=== PATIENT | female | born 1985 | race Caucasian/White ===

== ENCOUNTER 2019-04-11 14:37 | Outpatient (REF) | payer BC, SELFPAY | END 2019-04-11 14:57 | LOC: LBN 14:37 | PROVIDERS: PCP Family Medicine; Visit Provider Nurse Practitioner | DX: N39.0 Urinary tract infection, site not specified (principal) | CPT/HCPCS: 87077; 87086; 87186 ==

== ENCOUNTER 2020-12-02 03:46 | Outpatient (CLI) | payer OTHER, SELFPAY ==
[2020-12-02 16:01] LABS: Kit/Specimen SENT
[2020-12-02 16:07] LABS: Abs Immature Grans 0.05 10^3/uL (0.0-0.06); Absolute Basophil Count 0.04 10^3/uL (0.0-0.2); Absolute Eosinophil Count 0.04 10^3/uL (0.0-0.7); Absolute Lymphocyte Count 1.29 10^3/uL (1.2-3.4); Absolute Monocyte Count 0.64 10^3/uL (0.1-0.8); Absolute Neutrophil Count 8.16 10^3/uL (1.2-6.7); Basophils % 0.4; Eosinophils % 0.4; HCT 38.2 % (36.0-46.0); HGB 13.4 g/dL (11.2-15.7); Immature Grans % 0.5; Lymphocytes % 12.6; MCH 30.1 pg (27.0-33.0); MCHC 35.1 % (32.0-36.0); MCV 85.8 fL (80-95); MPV 9.7 fL (8.0-11.0); Monocytes % 6.3; Neutrophils % 79.8; Nucleated RBC 0 %; Platelet Count 303 10^3/uL (130-400); RBC 4.45 10^6/uL (3.93-5.22); RDW 12.1 % (11.7-14.6); RDW-SD 37.9 fL; WBC 10.22 10^3/uL (4.4-10.8)
[2020-12-02 16:57] LABS: ALT 36 U/L (14-59); AST 18 U/L (15-37); Albumin 4.1 g/dL (3.4-5.0); Alkaline Phosphatase 37 U/L (46-116); Anion Gap 12.8 mmol/L (3-11); BUN 6 mg/dL (7-18); Bilirubin, Total 0.4 mg/dL (0.2-1.0); CO2 24.2 mmol/L (21.0-32.0); CREATININE 0.5 mg/dL (0.55-1.02); Calcium 9.3 mg/dL (8.5-10.1); Chloride 100 mmol/L (98-107); Glucose 77 mg/dL (74-106); Potassium 3.7 mmol/L (3.5-5.1); Sodium 137 mmol/L (136-145); TSH (W/Ref FT4) 1.35 uIU/mL (0.36-3.74); Total Protein 7.8 g/dL (6.4-8.2)
[2020-12-02 19:42] LABS: *AMPHETAMINES SCREEN URINE Negative (Negative); *BARBITURATES SCREEN URINE Negative (Negative); *BENZODIAZEPINES SCREEN URINE Negative (Negative); Cannabinoids THC Negative (Negative); Cocaine Screen,Urine Negative (Negative); METHADONE URINE SCREEN Negative (Negative); OPIATES URINE SCREEN Negative (Negative)
[2020-12-02 19:44] LABS: Tricyclic Antidepressants Negative (Negative)
[2020-12-03 09:01] LABS: Hepatitis B Surface Ag Negative (Negative)
[2020-12-03 09:27] LABS: Hepatitis C Ab w Rflx HCV PCR Negative (Negative)
[2020-12-03 09:33] LABS: HIV-1/2 Ag & Ab Screen Negative (Negative)
[2020-12-03 10:23] LABS: Varicella IgG Antibody Negative (See Note)
[2020-12-03 10:27] LABS: Rubella IgG Ab (UVM) Positive (See Note)
[2020-12-04 11:38] LABS: Syphilis Total Ab w/Reflex Nonreactive (Nonreactive)
[2020-12-04 19:48] LABS: Specimen WB Whole Blood
[2020-12-06 13:08] LABS: Buprenorphine Negative ng/mL (Cutoff: 5.0); Norbuprenorphine Negative ng/mL (Cutoff: 2.5)
[2020-12-09 14:55] LABS: Chlamydia Result Negative (Negative); GC Result Negative (Negative)
[2020-12-17 16:13] LABS: Result Summary NEGATIVE; Specimen WB Whole Blood
== END 2020-12-02 03:47 | disposition home or self-care (01) ==
LOC: LBO 03:46
PROVIDERS: PCP Nurse Practitioner; Visit Provider Advanced Practice Midwife
DX: Z34.91 Encounter for supervision of normal pregnancy, unspecified, first trimester (principal); Z11.59 Encounter for screening for other viral diseases; Z11.4 Encounter for screening for human immunodeficiency virus [HIV]; Z11.3 Encounter for screening for infections with a predominantly sexual mode of transmission; Z36.89 Encounter for other specified antenatal screening
CPT/HCPCS: 80053; 80307; 81329; 86787; 86803; 86850; 86900; 86901; 87340; 87389; 87491; 87591; 81220; 84443; 85025; 86762; 86780; 87086

== ENCOUNTER 2020-12-02 16:49 | Outpatient (REF) | payer OTHER, SELFPAY ==
--- NOTE | 2020-12-02 15:10 | PAPFT_PTH ---
PATIENT: Vy Koch LOC: [facility] U#:[id number] AGE/SX: 35/F ROOM: RE12/02/[address]: Ann Mendenhall : 1985 BED: DIS: 12/02/2020 SPEC #: [id number] RECD: 12/02/20 17:31 STATUS: BRIAN REQ #: [id number] FRANSISCA: 12/02/20 15:[address]: Ann Mendenhall DEPT: [facility] Cytology RECD BY: Jana Thompson ENTERED: 12/02/20 17:32 SP TYPE: PAPFT OTHR DR: Zuleika Rodriguez, PhD [employer] Tissues: 1 - CX/ENDOCX FOR PAP SMEARS Procedures: PAP THIN PREP/UVM Screening HPV DNA PROBE Comments: [id number]
== END 2020-12-02 16:50 | disposition home or self-care (01) ==
LOC: LBN 16:49
PROVIDERS: PCP Nurse Practitioner; Visit Provider Advanced Practice Midwife
DX: Z12.4 Encounter for screening for malignant neoplasm of cervix (principal); Z11.51 Encounter for screening for human papillomavirus (HPV)
CPT/HCPCS: 88142; 87624

== ENCOUNTER 2020-12-30 03:30 | Outpatient (CLI) | payer OTHER, SELFPAY ==
[2020-12-30 15:06] LABS: Glucose,1 Hr (Glucola) 97 mg/dL (80-140)
== END 2020-12-30 03:31 | disposition home or self-care (01) ==
LOC: LBO 03:30
PROVIDERS: PCP Nurse Practitioner; Visit Provider Advanced Practice Midwife
DX: Z34.92 Encounter for supervision of normal pregnancy, unspecified, second trimester (principal)
CPT/HCPCS: 36415; 82950

== ENCOUNTER 2021-01-03 16:07 | Outpatient (REF) | payer OTHER, SELFPAY ==
[2021-01-03 17:24] LABS: PROTEIN < 6.0 mg/dL (0.0-11.9)
[2021-01-03 17:25] LABS: Total Volume 3000 ml
== END 2021-01-03 16:08 | disposition home or self-care (01) ==
LOC: LBN 16:07
PROVIDERS: PCP Nurse Practitioner; Visit Provider Advanced Practice Midwife
DX: R03.0 Elevated blood-pressure reading, without diagnosis of hypertension (principal)
CPT/HCPCS: 81050; 84155

== ENCOUNTER 2021-04-07 02:20 | Outpatient (CLI) | payer OTHER, SELFPAY ==
[2021-04-07 09:55] LABS: HCT 32.4 % (36.0-46.0); MCH 30.4 pg (27.0-33.0); MCV 89.5 fL (80-95); MPV 9.4 fL (8.0-11.0); Platelet Count 222 10^3/uL (130-400); RBC 3.62 10^6/uL (3.93-5.22); RDW 13.3 % (11.7-14.6); RDW-SD 43.6 fL; WBC 9.97 10^3/uL (4.4-10.8)
[2021-04-07 10:02] LABS: Glucose,1 Hr (Glucola) 119 mg/dL (80-140)
== END 2021-04-07 02:21 | disposition home or self-care (01) ==
LOC: LBO 02:21
PROVIDERS: PCP Nurse Practitioner; Visit Provider Advanced Practice Midwife
DX: O12.03 Gestational edema, third trimester (principal); Z3A.28 28 weeks gestation of pregnancy
CPT/HCPCS: 36415; 82950; 85027

== ENCOUNTER 2021-05-20 18:47 | Outpatient (REF) | payer OTHER, SELFPAY ==
[2021-05-20 22:07] LABS: PROTEIN < 6.0 mg/dL
== END 2021-05-20 18:48 | disposition home or self-care (01) ==
LOC: LBN 18:47
PROVIDERS: PCP Nurse Practitioner; Visit Provider Advanced Practice Midwife
DX: O10.913 Unspecified pre-existing hypertension complicating pregnancy, third trimester (principal); Z3A.34 34 weeks gestation of pregnancy
CPT/HCPCS: 82565; 84156

== ENCOUNTER 2021-05-21 04:10 | Outpatient (CLI) | payer OTHER, SELFPAY ==
[2021-05-21 13:51] LABS: HCT 33.2 % (36.0-46.0); HGB 11.4 g/dL (11.2-15.7); MCH 30.2 pg (27.0-33.0); MCHC 34.3 % (32.0-36.0); MCV 87.8 fL (80-95); MPV 9.4 fL (8.0-11.0); Platelet Count 215 10^3/uL (130-400); RBC 3.78 10^6/uL (3.93-5.22); RDW-SD 44.4 fL; WBC 9.01 10^3/uL (4.4-10.8)
[2021-05-21 15:10] LABS: ALT 15 U/L (14-59); AST 11 U/L (15-37); Albumin 3.2 g/dL (3.4-5.0); Alkaline Phosphatase 104 U/L (46-116); Anion Gap 11.3 mmol/L (3-11); BUN 6 mg/dL (7-18); Bilirubin, Total 0.3 mg/dL (0.2-1.0); CO2 22.7 mmol/L (21.0-32.0); CREATININE 0.6 mg/dL (0.55-1.02); Calcium 9.8 mg/dL (8.5-10.1); Chloride 104 mmol/L (98-107); Glucose 95 mg/dL (74-106); Potassium 3.9 mmol/L (3.5-5.1); Sodium 138 mmol/L (136-145); Total Protein 6.6 g/dL (6.4-8.2)
== END 2021-05-21 04:11 | disposition home or self-care (01) ==
LOC: LBO 04:10
PROVIDERS: PCP Nurse Practitioner; Visit Provider Advanced Practice Midwife
DX: O10.913 Unspecified pre-existing hypertension complicating pregnancy, third trimester (principal); Z3A.34 34 weeks gestation of pregnancy
CPT/HCPCS: 36415; 80053; 85027

== ENCOUNTER 2021-05-28 14:27 | Outpatient (CLI) | payer OTHER, SELFPAY ==
[2021-05-28 14:53] VITALS: BP 129/71; PULSE 100; TEMP 37.4
--- NOTE | 2021-05-28 14:58 | W.OBNST ---
Date of service: 05/28/21 Time of Service: 14:59 NST Evaluation Reason for NST Reasons for Nonstress Test: CHRONIC HYPERTENSION Gestational Age Gestational Age in Weeks and Days: 35 Weeks and 6Days Test and Monitor Explained Test/Monitor Explained: Test Explained, Monitor Explained and Patient Verbalized Understanding Vital Signs Blood Pressure: 121/79 Urine Results Urine Protein: Negative (negative in office just before NST) NST Information NST Interventions: None Contraction Frequency: irregular Comments: patient unaware of contractions NST Evaluation Patient States Movement: Present FHR Baseline: 130 Variability: Moderate 6-25 bpm Accelerations: 15x15 Decelerations: None NST Results: Reactive Note NST Note Note: BP 121/79 during NST. Patient has no complaints of pre-eclampsia. NST is reactive and reassuring. Will continue with twice weekly NST and weekly office visit until IOL which is scheduled for 06/19/21. NST Reviewed and Verified by: Ann Bailey
[2021-05-28 15:01] VITALS: BP 121/79
== END 2021-05-28 15:00 | disposition home or self-care (01) ==
LOC: BCD 14:28 → OBS 14:51
PROVIDERS: PCP Nurse Practitioner; Visit Provider Advanced Practice Midwife
DX: O10.03 Pre-existing essential hypertension complicating the puerperium (principal); Z3A.35 35 weeks gestation of pregnancy
CPT/HCPCS: 59025; 87081

== ENCOUNTER 2021-06-02 08:02 | Outpatient (CLI) | payer OTHER, SELFPAY ==
[2021-06-02 13:39] VITALS: BP 133/72; PULSE 96; TEMP 37.1
[2021-06-02 14:01] VITALS: BP 133/77; PULSE 96
--- NOTE | 2021-06-02 14:27 | W.OBNST ---
Date of service: 06/02/21 Time of Service: 14:27 NST Evaluation Reason for NST Reasons for Nonstress Test: GESTATIONAL HYPERTENSION Gestational Age Gestational Age in Weeks and Days: 36 Weeks and 4Days Test and Monitor Explained Test/Monitor Explained: Test Explained, Monitor Explained and Patient Verbalized Understanding Vital Signs Blood Pressure: 133/72 Pulse: 96 Temperature: 98.8 F NST Information Date on Monitor: 06/02/21 Time on Monitor: 13:45 Date off Monitor: 06/02/21 Time off Monitor: 14:13 Total Time on Monitor: 28 NST Interventions: Reposition Patient NST Evaluation Patient States Movement: Present FHR Baseline: 125 Variability: Moderate 6-25 bpm Accelerations: 15x15 Decelerations: None NST Results: Reactive Note NST Note Note: BP 133/77 Returns on 06/05 for NST and PN appt NST Reviewed and Verified by: Lyssa Solis
[2021-06-02 14:28] VITALS: BP 133/72; PULSE 96; TEMP 37.1
== END 2021-06-02 14:21 | disposition home or self-care (01) ==
LOC: BCD 08:03 → OBS 13:37
PROVIDERS: PCP Nurse Practitioner; Visit Provider Advanced Practice Midwife
DX: O13.3 Gestational [pregnancy-induced] hypertension without significant proteinuria, third trimester (principal); Z3A.36 36 weeks gestation of pregnancy
CPT/HCPCS: 59025

== ENCOUNTER 2021-06-03 00:07 | Outpatient (CLI) | payer OTHER, SELFPAY ==
--- NOTE | 2021-06-03 06:45 | DI.US_ITS ---
Exam(s) US OB GABRIELLE WEIGHT EXAM: US OB GABRIELLE WEIGHT CLINICAL HISTORY: hypertension in ,O10.919. TECHNIQUE: Transabdominal obstetrical ultrasound performed. COMPARISON: US US OB F/U FACIAL/LVOT/RVOT from 04/07/2021 FINDINGS: Transabdominal obstetrical ultrasound performed. FINDINGS: Number of fetuses: One. position: Cephalic. Placental location: Posterior. Grade 2 placenta. No evidence of previa. BIOMETRIC DATA: BPD: 91 mm = 36 weeks 5 days HC: 326 mm = 37 weeks 1 AC: 326 mm = 36 weeks 4 days FL: 60 mm = 35 weeks 1 day EFW: 2900 grms 43% Composite Age: 36 weeks 3 days EDC: 06/28/2021 Heart Rate: 136BPM Amniotic fluid index: 15.1 cm. Visually, amount of fluid is within normal limits. IMPRESSION: 1. Single live intrauterine gestation as above. 2. Estimated weight is 2900gms. 3. Amniotic fluid index is 15.1 cm. Visually within normal limits. DATA REPOSITORY:
== END 2021-06-03 00:27 ==
PROVIDERS: PCP Nurse Practitioner; Visit Provider Advanced Practice Midwife
DX: O10.913 Unspecified pre-existing hypertension complicating pregnancy, third trimester (principal); Z3A.36 36 weeks gestation of pregnancy
CPT/HCPCS: 76816

== ENCOUNTER 2021-06-05 07:36 | Outpatient (CLI) | payer OTHER, SELFPAY ==
[2021-06-05 10:09] VITALS: BP 130/73; PULSE 98; TEMP 36.8
[2021-06-05 10:12] VITALS: BP 130/73; PULSE 98
[2021-06-05 10:29] VITALS: BP 132/72; PULSE 94
[2021-06-05 10:32] VITALS: BP 130/73; PULSE 98; TEMP 36.8
[2021-06-05 10:35] VITALS: BP 124/67; PULSE 100
--- NOTE | 2021-06-05 13:54 | W.OBNST ---
Date of service: 06/05/21 Time of Service: 13:54 NST Evaluation Reason for NST Reasons for Nonstress Test: GESTATIONAL HYPERTENSION Gestational Age Gestational Age in Weeks and Days: 37 Weeks and 0Days Test and Monitor Explained Test/Monitor Explained: Test Explained, Monitor Explained and Patient Verbalized Understanding Vital Signs Blood Pressure: 130/73 Pulse: 98 Temperature: 98.2 F NST Information Date on Monitor: 06/05/21 Time on Monitor: 10:00 Date off Monitor: 06/05/21 Time off Monitor: 10:30 Total Time on Monitor: 30 NST Interventions: None NST Evaluation Patient States Movement: Present FHR Baseline: 135 Variability: Moderate 6-25 bpm Accelerations: 15x15 Decelerations: None NST Results: Reactive Note NST Note Note: BP 124/67, discharged and going to check up in he office now NST Reviewed and Verified by: Lyssa Solis
[2021-06-05 13:55] VITALS: BP 130/73; PULSE 98; TEMP 36.8
== END 2021-06-05 10:35 | disposition home or self-care (01) ==
LOC: BCD 07:37 → OBS 10:07
PROVIDERS: PCP Nurse Practitioner; Visit Provider Advanced Practice Midwife
DX: O13.3 Gestational [pregnancy-induced] hypertension without significant proteinuria, third trimester (principal); Z3A.37 37 weeks gestation of pregnancy
CPT/HCPCS: 59025

== ENCOUNTER 2021-06-09 10:01 | Outpatient (CLI) | payer OTHER, SELFPAY ==
[2021-06-09 10:05] VITALS: BP 132/77; PULSE 93; TEMP 36.7
--- NOTE | 2021-06-09 10:54 | PDOC.NST_ITS ---
Date of service: 06/09/21 Time of Service: 10:25 NST Evaluation Reason for NST Reasons for Nonstress Test: GESTATIONAL HYPERTENSION Gestational Age Gestational Age in Weeks and Days: 37 Weeks and 4Days Test and Monitor Explained Test/Monitor Explained: Test Explained, Monitor Explained and Patient Verbalized Understanding Vital Signs Blood Pressure: 132/77 Pulse: 93 Temperature: 98.1 F NST Information Date on Monitor: 06/09/21 Time on Monitor: 10:01 Date off Monitor: 06/09/21 Time off Monitor: Total Time on Monitor: 22 NST Interventions: PO Hydration Contraction Frequency: none NST Evaluation Patient States Movement: Present FHR Baseline: 130 Variability: Moderate 6-25 bpm Accelerations: 15x15 Decelerations: None NST Results: Reactive Note NST Note Note: NST is reactive and reassuring, BP stable. Denies symptoms of pre- eclampsia. Will return for visit and NST's as scheduled. NST Reviewed and Verified by: Ann Bailey
[2021-06-09 10:55] VITALS: BP 132/77; PULSE 93; TEMP 36.7
== END 2021-06-09 10:25 | disposition home or self-care (01) ==
LOC: BCD 10:02 → OBS 10:03
PROVIDERS: PCP Nurse Practitioner; Visit Provider Advanced Practice Midwife
DX: O13.3 Gestational [pregnancy-induced] hypertension without significant proteinuria, third trimester (principal); Z3A.37 37 weeks gestation of pregnancy
CPT/HCPCS: 59025

== ENCOUNTER 2021-06-12 07:34 | Outpatient (CLI) | payer OTHER, SELFPAY ==
[2021-06-12 10:00] VITALS: BP 141/80; PULSE 106
[2021-06-12 10:02] VITALS: BP 141/80; PULSE 106; TEMP 36.6
[2021-06-12 10:20] VITALS: BP 125/69; PULSE 92
--- NOTE | 2021-06-12 11:51 | W.OBNST ---
Date of service: 06/12/21 Time of Service: 11:51 NST Evaluation Reason for NST Reasons for Nonstress Test: GESTATIONAL HYPERTENSION Gestational Age Gestational Age in Weeks and Days: 38 Weeks and 0Days Test and Monitor Explained Test/Monitor Explained: Test Explained, Monitor Explained and Patient Verbalized Understanding Vital Signs Blood Pressure: 141/80 Pulse: 106 Temperature: 97.9 F NST Information Date on Monitor: 06/12/21 Time on Monitor: 09:59 Date off Monitor: 06/12/21 Time off Monitor: 10:50 Total Time on Monitor: 51 NST Interventions: None Contraction Frequency: none NST Evaluation Patient States Movement: Present FHR Baseline: 135 Variability: Moderate 6-25 bpm Accelerations: 15x15 Decelerations: None NST Results: Reactive Note NST Note Note: presentation confirmed by bedside US. Vertex. NST 06/16 and IOL 06/19. NST Reviewed and Verified by: Ann Mendenhall
[2021-06-12 11:52] VITALS: BP 141/80; PULSE 106; TEMP 36.6
== END 2021-06-12 11:00 | disposition home or self-care (01) ==
LOC: BCD 07:34 → OBS 09:58
PROVIDERS: PCP Nurse Practitioner; Visit Provider Advanced Practice Midwife
DX: O13.3 Gestational [pregnancy-induced] hypertension without significant proteinuria, third trimester (principal); Z3A.38 38 weeks gestation of pregnancy
CPT/HCPCS: 59025

== ENCOUNTER 2021-06-16 08:12 | Outpatient (CLI) | payer OTHER, SELFPAY ==
[2021-06-16 10:09] VITALS: BP 123/73; PULSE 91; TEMP 36.6
[2021-06-16 10:16] VITALS: BP 123/73; PULSE 91; TEMP 36.5
--- NOTE | 2021-06-16 10:37 | W.OBNST ---
Date of service: 06/16/21 Time of Service: 10:39 NST Evaluation Reason for NST Reasons for Nonstress Test: GESTATIONAL HYPERTENSION Gestational Age Gestational Age in Weeks and Days: 38 Weeks and 4Days Test and Monitor Explained Test/Monitor Explained: Monitor Explained and Patient Verbalized Understanding Vital Signs Blood Pressure: 123/73 Pulse: 91 Temperature: 97.9 F NST Information Date on Monitor: 06/16/21 Time on Monitor: 10:04 NST Interventions: PO Hydration NST Evaluation Patient States Movement: Present FHR Baseline: 130 Variability: Moderate 6-25 bpm Accelerations: 15x15 Decelerations: None NST Results: Reactive Note NST Note Note: IOL planned for 06/19 NST Reviewed and Verified by: Ann Mendenhall
[2021-06-16 10:40] VITALS: BP 123/73; PULSE 91; TEMP 36.6
== END 2021-06-16 10:45 | disposition home or self-care (01) ==
LOC: BCD 08:18 → OBS 10:00
PROVIDERS: PCP Nurse Practitioner; Visit Provider Advanced Practice Midwife
DX: O13.3 Gestational [pregnancy-induced] hypertension without significant proteinuria, third trimester (principal); Z3A.38 38 weeks gestation of pregnancy
CPT/HCPCS: 59025

== ENCOUNTER 2021-06-19 07:39 | Inpatient (IN) | payer OTHER, SELFPAY ==
[2021-06-19 09:29] VITALS: BP 142/80; PULSE 101
[2021-06-19 09:30] VITALS: TEMP 37
--- NOTE | 2021-06-19 09:35 | W.PM.OBHPL1 ---
Date of service: 06/19/21 Time of Service: 09:35 Assessment and Plan Assessment and plan (1) Chronic hypertension in : Status: Acute (2) 39 weeks gestation of : Status: Acute (3) Encounter for induction of labor: Status: Acute Assessment and plan: A: 36 yo @ 39 wks Stage 1 chronic HTN, identified in first trimester of No medication for hypertension has been indicated, BP stable surveillance during third trimester has been reassuring GBS+, plan for PCN prophylaxis in labor Varicella non-immune, plan vaccination Low risk for SD, increased risk for PPH d/t HTN and induction Category 1 tracing P: Admit to BC, Pre-E labs, COVID swab Begin misoprostel cervical ripening Dr. Mendoza consulting OB-HPI Labor/Delivery History of Present Illness Reason for Visit: Rule out labor Chief Complaint: Scheduled Induction of Labor Indication for Induction: Chronic Hypertension. TAL Calculator Estimated Delivery Date Method Current WG Current Estimate 06/26/21 Ultrasound #1 39w 0d Other Estimates 06/19/21 LMP (Certain) 40w 0d History of Present Expected Delivery Route/Plan - CNM FOB (not involved) - Martin Cabrales (his first child)-not involved Varicella Non-Immune, vaccinate BB Heriberto Ureña yes, Vy Gudino's mother will primary labor support- she is not vaccinated. Stage 1 chronic HTN without need for medication, GBS POSITIVE, plan for PCN prophylaxis in labor Specific Issues/Plan 1. Elevated BMI - Early GTT scheduled - 97 1a. ASA recommended- Vy declines 2. Desires [place], CF and SMA, drawn 12/02 2a. SMA and CF negative, [place] neg. gender test inconclusive. 2b. Declines single marker AFP test 3. Varicella non immune, will accept vaccine 4. Systolic BP elevated in 140's, baseline labs nml, 24 hr urine neg 4a. review BP's and lab results with MD: per Dr. Alicia, likely chronic HTN, no Rx 4b.Likely stage 1 chronic HTN without need for medication; will follow, discuss timing of delivery with MD consult as indicated 4c.US for growth scheduled at 36 weeks on 06/03, preeclampsia labs at 35 weeks = WNL 43%ile, GABRIELLE 15.1 4d. Induction planned on 06/19 5. Marginal placenta tip 1.3 cm from OS at 18 weeks, f/u 28 weeks on 04/07 5a. 28 wk scan shows placenta @ 1cm from os, [place]er [place] [facility] [place] consult: sched'ed for 05/02 5b. US at [facility] - posterior placenta not low lying (RESOLVED), no previa, weight 2108 gms in the 84th percentile at 32 wks 6. Vy declines Covid vaccine. Assessment: History Reviewed & Current Informed Consent Informed Consent: Induction of Labor (via cervical ripening) and Risk,Benefits,Alternatives Discussed Review of Systems All systems reviewed & are unremarkable except as noted in HPI and below Constitutional Constitutional: Reports as per HPI ENT Comments: Denies headache or visual changes Cardiovascular Cardiovascular: Reports system reviewed and no additional complaints, except as documented Respiratory Respiratory: Reports system reviewed and no additional complaints, except as documented Gastrointestinal Gastrointestinal: Reports system reviewed and no additional complaints, except as documented Genitourinary Genitourinary: Reports system reviewed and no additional complaints, except as documented Musculoskeletal Musculoskeletal: Reports system reviewed and no additional complaints, except as documented Integumentary/Breasts Skin/Breast: Reports system reviewed and no additional complaints, except as documented Psychiatric Psychiatric: Reports system reviewed and no additional complaints, except as documented [facility] Medical History (Updated 06/19/21 @ 09:41 by Lyssa Solis) Elevated BP without diagnosis of hypertension Low lying placenta nos or without hemorrhage, second trimester resolved per f/up ultrasound on 05/02/21 at [facility] Marginal placenta state, gestational carrier Family History (Updated 02/24/21 @ 10:11 by Ann Mendenhall CNM) Mother Kidney agenesis sepsis from non-working kidney Hypertension Father Cancer near thyroid- thyroid removed Sister Anxiety Maternal Aunt Anxiety Sister Anxiety Maternal Grandfather Diabetes Paternal Uncle Diabetes Social History Smoking/Tobacco Use Status: Never Smoking risk assessment performed?: Yes History History 2 Para 0 Hx # Term Pregnancies 0 Multiple births 0 Hx # Pregnancies 0 Ectopic pregnancies 0 AB induced 1 Hx Number of Living Children 0 AB spontaneous 0 Meds Allergies and Home Medications Allergies Allergy/AdvReac Type Severity Reaction Status Date / Time CRAB Allergy Intermediate Uncoded 06/05/21 10:53 Home Medications Medication Instructions Recorded Confirmed Type vitamins with calcium 1 tab PO DAILY #90 tab 11/18/20 06/12/21 Rx no.72-iron 29 mg-folic acid 1 mg tablet ferrous fumarate 89 mg (29 mg 89 mg PO DAILY 04/21/21 06/12/21 History iron) tablet Exam Physical Exam Vital signs: Temp Pulse BP 98.6 F 101 H 142/80 H 06/19/21 09:30 06/19/21 09:29 06/19/21 09:29 Vital Signs Reviewed: Yes Constitutional Constitutional: no acute distress Detailed Labor and Delivery Exam Dilation: 1 Effacement (%): 0 station: -4 Cervix position: posterior Consistency: firm DEL CASTILLO Score(Cervical Ripeness Score): 2 Amniotic Membrane Status: Intact Contraction Frequency(min): 0 Fetus A Heart Rate Baseline: 140 Monitor Accelerations: 15 X 15 Monitor Decelerations: None Presentation: Cephalic Categories: Category I Est. Weight: 7 lb 7.931 oz Est. Weight: 3400 gms HEENT Exam HEENT Exam: Normal Neck Exam Neck Exam: Normal Chest/Brest/Axilla Exam Chest Exam: Normal Breast Exam Breast Exam: Not Done Respiratory Exam Respiratory Exam: Normal Cardiovascular Exam Cardiovascular Exam: Normal Abdominal Exam Abdominal Exam: Normal (Gravid, nontender) Rectal Exam Rectal Exam: Not Done Exam Exam: Normal Extremities Exam Extremities Exam: Normal Back/Spine/Pelvis Exam Back Exam: Normal Pelvis Adequate: Yes Skin Exam Skin Exam: Normal Neurological Exam Neurological Exam: Normal Psychiatric Exam Psychiatric Exam: Normal Results Results Group Beta Strep: Positive Blood Type: A+ Rubella Status: Immune Varicella Immunity: Nonimmune Risk Assessment Risk for Shoulder Dystocia Historical/Initial OB: POSITIVE FOR: Pre- BMI>30; NEGATIVE FOR: Pelvic Abnormality, Previous Shoulder Dystocia or Previous Macrosomia Increased Risk?: No Date/Initial: 05/28/21 Delivery Plan @ 36wks: IOL by 39 weeks Risk for Pre-Eclampsia Daily Dose ASA Indicated: Yes Date Initiated/Initials: pt declines to take low dose ASA as was recommended Yes, if one or more: NEGATIVE FOR: Hx Pre-E/Gest HTN, Chronic HTN, Multiple Gestation, Pre-gestational DM, Renal Disease, Systemic Lupus or APA Syndrome Yes, if 2 or more: POSITIVE FOR: Nulliparity and BMI>30; NEGATIVE FOR: Age>= 35 yrs, >10yr btwn pregnancies, ethinicty, Mother/Sister w/ Pre-E or Previous IUGR Risk for Post- Hemorrhage Initial: NEGATIVE FOR: Multiple Gestation, Previous PPH, Known Clotting Deficiency, Grand Multiparity or Anticoagulation At Risk?: Yes Interventions: on admission for IOL increased risk noted due to HTN and Induction process Counseled re: Active Management: Yes Risks Reviewed Risks Reviewed Upon Admission: Yes
[2021-06-19 09:46] VITALS: BP 142/80; PULSE 101; RESP 14; TEMP 37
[2021-06-19 10:06] LABS: Source Nasal/Nares
[2021-06-19 10:07] LABS: HCT 35.7 % (36.0-46.0); HGB 12.1 g/dL (11.2-15.7); MCHC 33.9 % (32.0-36.0); MCV 88.4 fL (80-95); MPV 9.7 fL (8.0-11.0); Platelet Count 224 10^3/uL (130-400); RBC 4.04 10^6/uL (3.93-5.22); RDW 14.2 % (11.7-14.6); RDW-SD 45.5 fL; WBC 8.31 10^3/uL (4.4-10.8)
[2021-06-19] MEDS: miSOPROStol 25 MCG TAB 50 MCG PO (10:19)
[2021-06-19 10:32] LABS: ALT 20 U/L (14-59); AST 15 U/L (15-37); Albumin 2.9 g/dL (3.4-5.0); Alkaline Phosphatase 139 U/L (46-116); Anion Gap 8.1 mmol/L (3-11); BUN 7 mg/dL (7-18); Bilirubin, Total 0.3 mg/dL (0.2-1.0); CO2 23.9 mmol/L (21.0-32.0); CREATININE 0.5 mg/dL (0.55-1.02); Calcium 9.2 mg/dL (8.5-10.1); Chloride 105 mmol/L (98-107); Glucose 87 mg/dL (74-106); Potassium 3.3 mmol/L (3.5-5.1); Sodium 137 mmol/L (136-145); Uric Acid 3.7 mg/dL (2.6-6.0)
[2021-06-19 10:57] LABS: COVID-19 PCR Negative (Negative)
[2021-06-19 11:43] LABS: COMMENT (LAB VIEW ONLY) 128.41 mg/dL; Prot/Crea Ur Ratio 0.25
[2021-06-19 14:02] VITALS: BP 142/77; PULSE 89
[2021-06-19] MEDS: miSOPROStol 50 MCG TAB 25 MCG PO (15:20)
[2021-06-19 15:39] VITALS: BP 142/77; PULSE 89
[2021-06-19 16:44] VITALS: BP 136/75; PULSE 80; RESP 16; TEMP 36.8
[2021-06-19] MEDS: Zolpidem 5 MG TAB 10 MG PO (21:25)
--- NOTE | 2021-06-19 21:30 | PGE_ITS ---
Date of service: 06/19/21 Time of Service: 21:30 Contractions Monitor Mode: External Contraction Frequency(min): q3-4 Contraction Duration(sec): 60-70 Intensity: Mild Fetus A Monitor: External (US) Heart Rate Baseline: 140 Variability: Moderate (6-25 BPM) Categories: Category I Accelerations: 15 X 15 Decelerations: None Amniotic Membrane Status: Intact Assessment and Plan Assessment and plan (1) Encounter for induction of labor: Status: Acute Assessment and plan: A: Pt rec'ed miso 50 mcg PO and then 25 mcg PO today BP remains stable, all pre-e labs WNL Primipara, IOL via cervical ripening P: Due to acuity and volume on unit, will hold further medication Encourage sleep tonight, Ambien 10 mg PO Resume cervical ripening in the morning Objective Abnormal lab results 06/19/21 06/19/21 Range/Units 09:55 09:55 Hct 35.7 L (36.0-46.0) % Potassium 3.3 L (3.5-5.1) mmol/L Creatinine 0.5 L (0.55-1.02) mg/dL Alkaline Phosphatase 139 H (46-116) U/L Albumin 2.9 L (3.4-5.0) g/dL Temp Pulse Resp BP 98.2 F 80 16 136/75 06/19/21 16:44 06/19/21 16:44 06/19/21 16:44 06/19/21 16:44 Laboratory Results WBC 8.31 10^3/uL (4.4-10.8) 06/19/21 09:55 RBC 4.04 10^6/uL (3.93-5.22) 06/19/21 09:55 Hgb 12.1 g/dL (11.2-15.7) 06/19/21 09:55 Hct 35.7 % (36.0-46.0) L 06/19/21 09:55 MCV 88.4 fL (80-95) 06/19/21 09:55 MCH 30.0 pg (27.0-33.0) 06/19/21 09:55 MCHC 33.9 % (32.0-36.0) 06/19/21 09:55 RDW 14.2 % (11.7-14.6) 06/19/21 09:55 Plt Count 224 10^3/uL (130-400) 06/19/21 09:55 MPV 9.7 fL (8.0-11.0) 06/19/21 09:55 Sodium 137 mmol/L (136-145) 06/19/21 09:55 Potassium 3.3 mmol/L (3.5-5.1) L 06/19/21 09:55 Chloride 105 mmol/L (98-107) 06/19/21 09:55 Carbon Dioxide 23.9 mmol/L (21.0-32.0) 06/19/21 09:55 Anion Gap 8.1 mmol/L (3-11) 06/19/21 09:55 BUN 7 mg/dL (7-18) 06/19/21 09:55 Creatinine 0.5 mg/dL (0.55-1.02) L 06/19/21 09:55 Estimated GFR/1.73 m2 >= 60.00 (mL/min/1.73m2) 06/19/21 09:55 Glucose 87 mg/dL (74-106) 06/19/21 09:55 Uric Acid 3.7 mg/dL (2.6-6.0) 06/19/21 09:55 Calcium 9.2 mg/dL (8.5-10.1) 06/19/21 09:55 Total Bilirubin 0.3 mg/dL (0.2-1.0) 06/19/21 09:55 AST 15 U/L (15-37) 06/19/21 09:55 ALT 20 U/L (14-59) 06/19/21 09:55 Alkaline Phosphatase 139 U/L (46-116) H 06/19/21 09:55 Total Protein 7.0 g/dL (6.4-8.2) 06/19/21 09:55 Albumin 2.9 g/dL (3.4-5.0) L 06/19/21 09:55 Ur Random Creatinine 128.41 mg/dL 06/19/21 09:20 U Random Total Protein 33.0 mg/dL 06/19/21 09:20 U [place] Prot/Creat Ratio 0.25 06/19/21 09:20 COVID-19 Source Nasal/Nares 06/19/21 09:35 SARS-CoV-2 (PCR) Negative (Negative) 06/19/21 09:35 Patient ABO/Rh A Positive 06/19/21 09:55 Antibody Screen NEGATIVE 06/19/21 09:55 Subjective Patient Reports: No new Complaints Interval history since last seen: Pt feels upper abd tightenings and lower abd cramps but is not in pain.
[2021-06-20] VITALS (7 sets, daily range): BP systolic 114–147; BP diastolic 60–89; PULSE 61–92; RESP 14–18; TEMP 36.5–36.8; O2SAT 99–100
--- NOTE | 2021-06-20 08:49 | W.PM.OBNL1 ---
Date of service: 06/20/21 Time of Service: 08:49 Informed Consent Informed Consent: Induction of Labor (via cervical ripening, place cervidil today) and Risk,Benefits,Alternatives Discussed Pelvic Exam Dilation: 1.5 Effacement (%): 30 station: -3 Cervix Position: mid Consistency: medium BISHOPS Score(Cervical Ripeness Score): 3 Vaginal Exam Presentation: Cephalic Contractions Monitor Mode: External Contraction Frequency(min): irregular Intensity: Mild Fetus A Monitor: External (US) Heart Rate Baseline: 135 Variability: Moderate (6-25 BPM) Categories: Category I Accelerations: 15 X 15 Decelerations: None Amniotic Membrane Status: Intact Assessment and Plan Assessment and plan (1) Encounter for induction of labor: Status: Acute Assessment and plan: A: primipara @ 39 wks with chronic HTN, stable HD #2 Resumption of cervical ripening this morning P: After breakfast and initial EFM tracing will insert cervidil Continuous EFM, clear liquids Currently using Monistat cream for vaginal exams d/t vaginal jamaal Observe for onset of labor, Plan to begin PCN prophylaxis for GBS when labor advances Dr. Mendoza consulting (2) 39 weeks gestation of : Status: Acute (3) Chronic hypertension in : Status: Acute Objective Vital Signs Reviewed: Yes Objective Narrative Objective Narrative: BP's remain stable, 130's over 70's through the night Slight cervical change palpable this morning, cano score has advanced from 2 to 3 Cervical ripening options reviewed with pt, will use cervidil today Catagory 1 tracing Subjective Patient Reports: No new Complaints Interval history since last seen: Pt took AMbien last night and slept well, states she feels rested, has showered and ready for breakfast, reports occasional abd tightenings that are not painful, lots of movement. Results Hemoglobin/Hematocrit: Hgb 12.1 g/dL (11.2-15.7) 06/19/21 09:55 Hct 35.7 % (36.0-46.0) L 06/19/21 09:55 Abnormal Lab Findings: Abnormal Labs 06/19/21 06/19/21 09:55 09:55 Hct 35.7 L Potassium 3.3 L Creatinine 0.5 L Alkaline Phosphatase 139 H Albumin 2.9 L
[2021-06-20] MEDS: Dinoprostone-CERVICAL 10 MG VSUPP VG (09:06)
--- NOTE | 2021-06-20 22:29 | W.PM.OBNL1 ---
Date of service: 06/20/21 Time of Service: 22:29 Informed Consent Informed Consent: Risk,Benefits,Alternatives Discussed and Other (Insertion of brooks balloon in cervix) Pelvic Exam Dilation: 2 Effacement (%): 50 station: -3 Cervix Position: mid Consistency: soft BISHOPS Score(Cervical Ripeness Score): 5 Vaginal Exam Presentation: Cephalic Contractions Contraction Frequency(min): q2-3 Contraction Duration(sec): 50-60 Intensity: Mild/Moderate Fetus A Monitor: External (US) Heart Rate Baseline: 140 Presentation: Cephalic Variability: Moderate (6-25 BPM) Categories: Category I Accelerations: 15 X 15 Decelerations: Early Amniotic Membrane Status: Intact Assessment and Plan Assessment and plan (1) Encounter for induction of labor: Status: Acute Assessment and plan: A: IOL in progress, cervical ripening continuing Thus far two doses of misoprostel yesterday, cervidil for 12 hrs today Pt beginning to become uncomfortable with contractions Zhu score advanced from 3 this morning to 5 P: Brooks balloon inserted: 18 g with 30 cc balloon Pt tolerated procedure well, bloody show during insertion Increased discomfort with contractions noted after brooks placed Nitrous made available to pt at her request Will begin GBS prophylaxis when cervical change in labor becomes apparent Observe for active labor, comfort measures as pt desires Objective Vital Signs Reviewed: Yes Objective Narrative Objective Narrative: Cervidil removed from vagina at 2100 (12 hrs) Contractions range q2-4 minutes apart, category 1 tracing Cvx exam 1-2/50%, mid pelvis and softer, vtx -3 Intact membranes, BP remaining stable @ 130's/70's Pt ate a regular dinner tray after a day of clear liquids Lengthy discussion of next steps: brooks bulb vs overnight obs vs resumption of miso vs pitocin Insertion of brooks bulb consented to, R&B reviewed including inadvertent ROM, increased discomfort [place] EFM has been working well all day, pt has been active & ambulating Accompanied by her mother for support Also discussed pain management options including nitrous, narcotic injection, and regional anesthesia Subjective Interval history since last seen: Contractions have become painful, especially in the lower abd area. Requesting nitrous inhalant. Results Abnormal Lab Findings: Procedure Procedures: Cervical Ripening Cervical Ripening: Brooks Bulb
[2021-06-20] MEDS: Zolpidem 10 MG TAB PO (23:09)
[2021-06-21] VITALS (14 sets, daily range): BP systolic 105–119; BP diastolic 53–67; PULSE 76–95; RESP 16–20; TEMP 36.2–36.9; O2SAT 99
--- NOTE | 2021-06-21 08:20 | W.PM.OBNL1 ---
Date of service: 06/21/21 Time of Service: 08:21 Informed Consent Informed Consent: Induction of Labor (Start pitocin this morning) and Risk,Benefits,Alternatives Discussed Pelvic Exam Dilation: 3.5 Effacement (%): 50 station: -3 Cervix Position: mid Consistency: soft BISHOPS Score(Cervical Ripeness Score): 6 Vaginal Exam Presentation: Cephalic Contractions Monitor Mode: External Contraction Frequency(min): irregular Contraction Duration(sec): 40-50 Intensity: Mild Fetus A Monitor: External (US) Heart Rate Baseline: 140 Variability: Moderate (6-25 BPM) Categories: Category I Accelerations: 15 X 15 Decelerations: None Amniotic Membrane Status: Intact Assessment and Plan Assessment and plan (1) Encounter for induction of labor: Status: Acute Assessment and plan: A: IOL for chronic HTN @ 39 wks, primipara HD#3, BP stable, no meds, labs on admit were WNL Category 1 tracing Zhu score has advanced to 6 after 2 doses miso, cervidil x12 hrs and brooks balloon P: Reviewed pt status and plan of care with pt and with Dr. Mendoza With more favorable cvx, will begin pitocin induction protocol today When cervical change to >4cm, will begin GBS prophylaxis Provide comfort measures as pt desires, monitor for progress Objective Vital Signs Reviewed: Yes Objective Narrative Objective Narrative: At removal of cervidil and insertion of brooks balloon last night pt was quite uncomfortable Was able to use nitrous for an hour or so, then took Ambien and slept through the night Brooks balloon in vaginal vault on exam this morning and removed SVE: 3-4/50% very soft, head @ -3, intact membranes, small amt bloody vaginal mucous Category 1 tracing with irregular mild contractions that pt generally does not appreciate With rest since admission and Ambien for sleep, BP is 112/56 this morning Subjective Interval history since last seen: Increased discomforts from last night diminished with rest and Ambien, was able to sleep well, wakes up this morning feeling very little discomfort, bloody vaginal mucous noted through the night. Interventions Induction Indication: Chronic Hypertension , Type of Induction: Pitocin , Results Abnormal Lab Findings:
[2021-06-21] MEDS: Lactated Ringers 1,000 ML 125 ML IV ×2 (09:38→16:11)
[2021-06-21] MEDS: Oxytocin/Normal Saline 30 UNIT/500 ML BAG 1 UNITS IV (10:43)
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
[2021-06-21] MEDS: Zolpidem 5 MG TAB 10 MG PO (22:16)
[2021-06-22] VITALS (9 sets, daily range): BP systolic 93–135; BP diastolic 52–73; PULSE 72–93; RESP 16–18; TEMP 36.3–37
[2021-06-22] MEDS: Lactated Ringers 1,000 ML 125 ML IV ×2 (07:56→21:43)
--- NOTE | 2021-06-22 08:58 | W.PM.OBNL1 ---
Date of service: 06/22/21 Time of Service: 08:59 Informed Consent Informed Consent: Induction of Labor (restart pitocin for 2nd day after a restful night) and Risk,Benefits,Alternatives Discussed Contractions Monitor Mode: External Contraction Frequency(min): irregular Intensity: Mild/Moderate Fetus A Monitor: External (US) Heart Rate Baseline: 130 Variability: Minimal (1-5 BPM) Categories: Category I Accelerations: 15 X 15 Decelerations: None Amniotic Membrane Status: Intact Assessment and Plan Assessment and plan (1) Encounter for induction of labor: Status: Acute Assessment and plan: A: HD#4, cervical ripening completed x24 hrs 12 hrs of pitocin infusion yesterday, active labor not achieved yet Second day of pitocin induction normotensive with rest and supportive environment category 1 tracing pt remains comfortable, her mother at bedside for support P: Per plan of care, pitocin infusion resumed this morning Will assess for progress this afternoon and as indicated Plan for GBS prophyaxis when indicated Comfort measures as pt desires Dr. Jung consulting Objective Vital Signs Reviewed: Yes Subjective Patient Reports: No new Complaints Interval history since last seen: Pt states she is fairly comfortable, does feel some strain in her lower back with on occasional contraction, denies ROM, bleeding. tolerating oral intake well. Interventions Induction Indication: Chronic Hypertension , Type of Induction: Pitocin ,
--- NOTE | 2021-06-22 12:20 | W.PM.OBNL1 ---
Date of service: 06/22/21 Time of Service: 12:20 Informed Consent Informed Consent: Induction of Labor (change plan of care today, stop pitocin, repeat cycles of misoprostel) Assessment and Plan Assessment and plan (1) Encounter for induction of labor: Status: Acute Assessment and plan: A: Minimal response to pitocin infusion FHT and BP are stable latent phase labor, not active yet P: Consult with Dr. Jung: stop pit, repeat cycles of misoprostel No indication at this time to expedite delivery via surgery Discussed plan with pt and she consents Subjective Interval history since last seen: Pt remains comfortable, expresses feelings of discouragement that her body won't go into labor, is thinking about C/S if induction does not work. Results Abnormal Lab Findings:
[2021-06-22] MEDS: miSOPROStol 50 MCG TAB PO ×3 (12:54→21:57)
--- NOTE | 2021-06-22 21:44 | W.PM.OBNL1 ---
Date of service: 06/22/21 Time of Service: 21:44 Pelvic Exam Dilation: 4 Effacement (%): 50 station: -3 Position: LOP Cervix Position: anterior Consistency: soft Vaginal Exam Presentation: Cephalic Fetus A Monitor: External (US) Heart Rate Baseline: 135 Variability: Moderate (6-25 BPM) Categories: Category I Accelerations: 15 X 15 Decelerations: None Amniotic Membrane Status: Intact Assessment and Plan Assessment and plan (1) Encounter for induction of labor: Status: Acute Assessment and plan: A: increased uterine activity per toco after 2 doses of miso 50 mcg PO IOL on 4th day. latent phase, pt remains comfortable category 1 tracing cano's score has advanced to 7 P: Continue misprostel protocol throughout the night Will consider AROM in the morning GBS prophylaxis at onset of active labor or ROM Objective Vital Signs Reviewed: Yes Subjective Interval history since last seen: Feeling upper abd tightenings, denies feeling pain. Lots of movement. Procedure Procedures: Cervical Ripening Cervical Ripening: Misoprostol
[2021-06-23] VITALS (84 sets, daily range): BP systolic 107–142; BP diastolic 53–78; PULSE 65–112; RESP 18; TEMP 36.4–36.9; O2SAT 76–100; BMI 37.3
[2021-06-23] MEDS: miSOPROStol 50 MCG TAB PO (07:48)
--- NOTE | 2021-06-23 09:20 | W.PM.OBNL1 ---
Date of service: 06/23/21 Time of Service: 09:21 Informed Consent Informed Consent: Risk,Benefits,Alternatives Discussed and Other (AROM, Pitocin and internal monitors.) Assessment and Plan Assessment and plan (1) Encounter for induction of labor: Status: Acute Assessment and plan: A: HD #5, IOL for cHTN, primipara, 39+4 wks 4th dose of miso given @ 0800 Contractions remain irregular and mild Category 1 tracing P: Consult with Dr. Jung AROM performed for large amt clear fluid Plan pitocin augmentation at 1200 with insertion of IUPC/FSE Continue trial of labor, begin PCN prophylaxis Comfort measures as pt desires Subjective Patient Reports: No new Complaints Interventions Induction Indication: Chronic Hypertension , Type of Induction: Artifical Rupture of Membranes ,
[2021-06-23] MEDS: Penicillin G POT. 5,000,000 UNITS in Normal Saline 100 ML 200 UNITS IVPB (09:55)
[2021-06-23] MEDS: Lactated Ringers 1,000 ML 125 ML IV ×2 (09:55→18:00)
[2021-06-23] MEDS: Oxytocin/Normal Saline 30 UNIT/500 ML BAG 2 UNITS IV (12:39)
--- NOTE | 2021-06-23 13:28 | W.PM.OBNL1 ---
Date of service: 06/23/21 Time of Service: 14:24 Pelvic Exam Dilation: 5 Effacement (%): 60 station: -3 Position: LOP Cervix Position: anterior Consistency: soft Contractions Monitor Mode: Internal Contraction Frequency(min): q2-3 Intensity: Moderate/Strong IUPC resting tone (mmHg): 15 IUPC peak pressure (mmHg): 75 IUPC [place] units: 200 Fetus A Monitor: Internal (FSE) Heart Rate Baseline: 135 Presentation: Cephalic Variability: Moderate (6-25 BPM) Categories: Category I Accelerations: 15 X 15 Decelerations: Early Amniotic Membrane Status: Ruptured Rupture Method: Artifical Amniotic Fluid: Clear Date of Membrane Rupture: 06/23/21 Time of Membrane Rupture: 09:12 Assessment and Plan Assessment and plan (1) Encounter for induction of labor: Status: Acute Assessment and plan: A: Adequate labor pattern per IUPC after AROM & pitocin Category 1 tracing per FSE Normotensive & afebrile P: 2nd dose of PCN infusing now trial of labor with pitocin augmentation monitor for progression and descent pt declines regional anesthesia, using nitrous Objective Vital Signs Reviewed: Yes Objective Narrative Objective Narrative: AROM for clear fluid @ 0900 IUPC and FSE inserted at 1230, pitocin augmentation begun Pitocin is currently at 7 mu/min IUPC showing MU's at 190-210 Pt using nitrous, resting RLP at the moment Feeling emotional, her mother providing effective support Category 1 tracing Subjective Interval history since last seen: Contractions are painful especially in lower abd. Using nitrous, declines regional anesthesia. States she is feeling emotionally overwhelmed right now. Interventions Augmentation , Pitocin rate (mU/min): 7 Results Abnormal Lab Findings: Procedure Procedures: Scalp Electrode Placement , indication for electrode: improved monitoring / IUPC Insertion , indication for IUPC: need to assess adequacy of labor while on pitocin
[2021-06-23] MEDS: Penicillin G POT. 3,000,000 UNITS in Normal Saline 50 ML 100 UNITS IVPB ×3 (14:03→22:55)
[2021-06-23] MEDS: Lactated Ringers 500 ML IV (17:29)
--- NOTE | 2021-06-23 17:36 | ANES.NEUR_ITS ---
Epidural/Spinal Catheter Date Performed: 06/23/21 Procedure Start: 18:06 Procedure Stop: 22:45 Requesting Provider: Lyssa Solis Procedure Location: Obstetrics Reason Performed: Labor Epidural Standard Monitors Applied: Blood Pressure, SpO2 and See EMR for corresponding vital signs Patient Position: Sitting Sedation Given (Indicate Dose Given): No Sedation given Patient Mental Status: Awake Sterility: Hand Hygiene, Surgical Cap, Surgical Mask, Sterile Gloves, Sterile Drape/Sheet and Chlorhexidine Procedure Location: L2-L3 Interspace Epidural Needle: Tuohy 18 Gauge Needle Length: 3.5 Inch Needle Approach: Midline Epidural Procedure: Skin Prepped, Sterile Drape Placed, 1% Lidocaine to skin and subcutaneous tissue with 25G needle, Tuohy Needle placed, KHUSHI to Saline Used, Epidural Catheter Placed, Negative Heme, Negative CSF Flow and Tuohy Needle Removed Catheter Placed?: Catheter Placed Test Dose (Indicate Dose Given): 3ml 1.5% Lidocaine with 1:200K Epinephrine Given Loss of Resistance Depth (cm): 8 Catheter depth at skin (cm): 14 Dressing: [place]orbaview Dressing Placed, Mastisol Used and Dressing reinforced with Tape Epidural Provider Bolus (Indicate Dose Given): Total bolus dose given in 3-5 ml divided doses and Total Bupivacaine 0.2 5% Given (ml) Dose:: 6 ml Additives (Indicate Dose Given ): Fentanyl PF Dose:: 100 mcg Infusion Medication: Medication Infusion Began (@184) Medication Infusion: Ropivacaine 0.1% with Fentanyl 2mcg/ml Maintenance Infusion Rate (ml/hour): 10 PCEA Bolus Dose (ml): 5 Block Level: T7 Paresthesia: None Ultrasound: Not Used Number of Attempts (See previous attempts in note section): 1 Procedure Tolerated: No Complications Procedure Outcome: Successful Performed By: Fletcher Escobar Supervised By: Isabelle Verde
--- NOTE | 2021-06-23 17:47 | ANES.PREOP_ITS ---
General Info Date of Service Date Performed: 06/23/21 Height: 5 ft 6.14 in Weight: 105.233 kg Body Mass Index (BMI): 37.3 Meds Allergies and Home Medications Allergies Allergy/AdvReac Type Severity Reaction Status Date / Time CRAB Allergy Intermediate Uncoded 06/05/21 10:53 Home Medication Medication Instructions Recorded vitamins with calcium 1 tab PO DAILY #90 tab 11/18/20 no.72-iron 29 mg-folic acid 1 mg tablet ferrous fumarate 89 mg (29 mg 89 mg PO DAILY 04/21/21 iron) tablet Current Visit Medications: Current Medications Generic Name Dose Route Start Last Admin Trade Name Freq PRN Reason Stop Dose Admin Fentanyl/Ropivacaine 200 ml 06/23/21 17:30 Fentanyl/Ropivacaine 2 Mcg/Ml And 0.1% 200 Ml Cadd Cassette EP DIRECTED RENETTA Hydrocortisone 30 gm 06/22/21 12:02 Hydrocortisone 1% Cr 30 Gm Tube TP TID PRN PRN Ringer's Solution 1,000 mls @ 125 mls/hr 06/21/21 09:00 06/23/21 12:39 IV 125 mls/hr INFUSION RENETTA Infusion Sodium Chloride 500 mls @ 0 mls/hr 06/21/21 08:51 Saline 500ml Bag IV PRN PRN As Directed Penicillin G Potassium 3,000, 50 mls @ 100 mls/hr 06/23/21 14:00 06/23/21 14:36 000 units/ Sodium Chloride IVPB Infused Q4H RENETTA Infusion Oxytocin/Sodium Chloride 30 unit in 500 mls @ 2 mls/hr 06/23/21 12:00 06/23/21 14:15 Pitocin/Normal Saline IV 7 milliunits/min INFUSION RENETTA 7 mls/hr Titration Protocol 2 MILLIUNITS/MIN Ringer's Solution 500 mls @ 500 mls/hr 06/23/21 17:24 06/23/21 17:29 IV 06/23/21 18:23 500 mls/hr BOLUS ONE Administration IV Miscellaneous Supplies 1 each 06/21/21 09:00 Iv Access IV DIRECTED RENETTA Miconazole Nitrate 45 gm 06/19/21 16:48 06/20/21 08:12 Miconazole 2% Vag 45 Gm Tube VG 1.5 oz PRN PRN Administration during vaginal exam Misoprostol 50 mcg 06/22/21 12:00 06/22/21 12:54 Misoprostol 50 Mcg Tab PO 50 mcg 1200 RENETTA Administration Misoprostol 50 mcg 06/22/21 22:00 06/22/21 21:57 Misoprostol 50 Mcg Tab PO 50 mcg 2200 RENETTA Administration Sodium Chloride 0 ml 06/21/21 08:51 Normal Saline Flush 10 Ml Syr IVP PRN PRN Terbutaline Sulfate 0.25 mg 06/19/21 07:39 Terbutaline 1 Mg/Ml Vial SC PRN PRN Zolpidem Tartrate 10 mg 06/21/21 08:00 06/21/21 22:16 Zolpidem 5 Mg Tab PO 10 mg HS PRN PRN Administration PFSH Active Problems Active Problems: Problem Status Onset Code Encounter for induction of labor Z34.90 39 weeks gestation of Z3A.39 Chronic hypertension in O10.919 Maternal varicella, non-immune O09.899, Z28.3 Z34.90 Medical History Medical History Elevated BP without diagnosis of hypertension Low lying placenta nos or without hemorrhage, second trimester resolved per f/up ultrasound on 05/02/21 at [facility] [place] Marginal placenta state, gestational carrier Tobacco Smoking/Tobacco Use Status: Never Substance Use Substance use: Never Substance use type: does not use Prental History History 2 Para 0 Hx # Term Pregnancies 0 Multiple births 0 Hx # Pregnancies 0 Ectopic pregnancies 0 AB induced 1 Hx Number of Living Children 0 AB spontaneous 0 Vital Signs and Lab Results Vital Signs Most Recent Vital Signs in EMR: Most Recent Vital Signs Temp Pulse Resp BP Pulse Ox 36.9 C 81 18 135/74 99 06/23/21 16:41 06/23/21 16:41 06/23/21 09:21 06/23/21 16:41 06/21/21 22:16 Lab Results Result Diagrams: 06/19/21 09:55 06/19/21 09:55 Blood Type / Crossmatch: Patient ABO/Rh A Positive 06/19/21 09:55 06/19/21 Antibody Screen NEGATIVE 06/19/21 09:55 06/19/21 Complete Blood Count: White Blood Count 8.31 10^3/uL (4.4-10.8) 06/19/21 09:55 06/19/21 Red Blood Count 4.04 10^6/uL (3.93-5.22) 06/19/21 09:55 06/19/21 Hemoglobin 12.1 g/dL (11.2-15.7) 06/19/21 09:55 06/19/21 Hematocrit 35.7 % (36.0-46.0) L 06/19/21 09:55 06/19/21 Platelet Count 224 10^3/uL (130-400) 06/19/21 09:55 06/19/21 Complete Metabolic Panel: Sodium Level 137 mmol/L (136-145) 06/19/21 09:55 06/19/21 Potassium Level 3.3 mmol/L (3.5-5.1) L 06/19/21 09:55 06/19/21 Chloride Level 105 mmol/L (98-107) 06/19/21 09:55 06/19/21 Carbon Dioxide Level 23.9 mmol/L (21.0-32.0) 06/19/21 09:55 06/19/21 Blood Urea Nitrogen 7 mg/dL (7-18) 06/19/21 09:55 06/19/21 Creatinine 0.5 mg/dL (0.55-1.02) L 06/19/21 09:55 06/19/21 Estimated GFR/1.73 m2 >= 60.00 (mL/min/1.73m2) 06/19/21 09:55 06/19/21 Calcium Level 9.2 mg/dL (8.5-10.1) 06/19/21 09:55 06/19/21 Albumin 2.9 g/dL (3.4-5.0) L 06/19/21 09:55 06/19/21 Glucose Level 87 mg/dL (74-106) 06/19/21 09:55 06/19/21 Liver Function Panel: Alanine Aminotransferase (ALT/SGPT) 20 U/L (14-59) 06/19/21 09:55 06/19/21 Aspartate Amino Transf (AST/SGOT) 15 U/L (15-37) 06/19/21 09:55 06/19/21 Coagulation Panel: No Data to Display Cardiac Panel: No Data to Display Arterial Blood Gas: No Data to Display Venous Blood Gas: No Data to Display Pancreas Panel: No Data to Display Thyroid Panel: No Data to Display Infectious Disease: Coronavirus (COVID-19)(PCR) Negative (Negative) 06/19/21 09:35 06/19/21 Coronavirus 2019 Source Nasal/Nares 06/19/21 09:35 06/19/21 Blood Cultures: No Data to Display Toxicology Panel: No Data to Display Panel: No Data to Display Anesthesia Assessment and Plan Anesthesia History Personal History: No History of Anesthesia Complications Family History: No Family History of Anesthesia Complications Exercise Tolerance Exercise Tolerance: Metabolic Equivalents>4 Pertinent Negatives Pertinent Negatives: No Symptoms of GERD, No Major Cardiovascular Symptoms or Complaints, No Major Pulmonary Symptoms or Complaints and No History of CVA/TIA Cardiac & Pulmonary Exam Cardiac Exam: Normal S1/S2 Heart Sounds Pulmonary Exam: Clear Bilateral Breath Sounds Airway Exam Known Difficult Airway: No Mallampati Class: 2 Mouth Opening: Normal (> 3cm) Thyromental Distance: Greater than 3 cm Neck Range of Motion: Full ROM Neck Circumference: Normal Teeth Condition: Normal Dentition ASA Classification ASA Score: ASA 2 Emergency Case?: No NPO Status NPO Status: NPO Clears >2 hours, Solids >8 hours Status Status: Not Relevant due to Medical History Anesthesia Plan Resuscitation Status: Full Code Anesthesia Technique: Epidural Anesthesia Airway Planned: Natural Airway Monitors Used: Standard Monitors
--- NOTE | 2021-06-23 19:31 | W.PM.OBNL1 ---
Date of service: 06/23/21 Time of Service: 19:31 Informed Consent Informed Consent: Regional Anesthesia and Risk,Benefits,Alternatives Discussed Pelvic Exam Dilation: 6 Effacement (%): 90 station: -2 Cervix Position: anterior Consistency: soft Contractions Monitor Mode: Internal Contraction Frequency(min): q3 Contraction Duration(sec): 60-80 Intensity: Moderate/Strong IUPC resting tone (mmHg): 20 IUPC peak pressure (mmHg): 80 Fetus A Monitor: External (US) Heart Rate Baseline: 130 Presentation: Cephalic Variability: Moderate (6-25 BPM) Categories: Category I Accelerations: 15 X 15 Decelerations: Early Amniotic Membrane Status: Ruptured Assessment and Plan Assessment and plan (1) Encounter for induction of labor: Status: Acute Assessment and plan: A: Epidural in place and effective Pitocin @ 7 mu/min IUPC re-inserted, FHT by external monitor Active labor with cvx now 6/90% vtx -2, some molding palpable ROM x10 hrs, pitocin infusion x6 hrs Category 1 tracing P: Encourage rest/sleep Change maternal positions, use Pnut ball for support Continue to increase pitocin as indicated for adequate labor Continue trial of labor, monitor for progress/descent Objective Dr. Jung examined pt at 1730 for minimal cervical change Adequate labor per IUPC for 4-5 hrs Pt has been very uncomfortable, using nitrous, pitocin held @ 7 mu Discussed with pt options to encourage progress in labor, pt opts for epidural BP stable, category 1 tracing FSE and IUPC were dislodged during pt's movements to BR and while using physioball Subjective Interval history since last seen: Epidural placed @ 1841, pt comfortable by 1900 though right side has more feeling then left. Feeling very sleepy. Interventions Pain Management Interventions: Epidural Epidural Placed by:: Isabelle Vered . Procedure Procedures: IUPC Insertion , indication for IUPC: replace first one, pitocin titration, document adequacy of labor
--- NOTE | 2021-06-23 20:12 | NUR.NOTE ---
Nursing Note: IUPC placed by Lyssa OH at 1
--- NOTE | 2021-06-23 20:12 | NUR.NOTE ---
Nursing Note:1924 IUPC replaced by Lyssa OH. Lyssa discussed placement of Matthew with pt, pt prefers to wait on Matthew.
--- NOTE | 2021-06-23 21:47 | NUR.NOTE ---
Nursing Note:Pitocin off and bolus started at 2135 due to recurrent late decels unresponsive to position changes
--- NOTE | 2021-06-23 21:59 | W.PM.OBNL1 ---
Date of service: 06/23/21 Time of Service: 21:59 Pelvic Exam Dilation: 9 Effacement (%): 100 station: 0 Contractions Monitor Mode: Internal Intensity: Moderate/Strong Fetus A Monitor: External (US) Heart Rate Baseline: 140 Presentation: Cephalic Variability: Moderate (6-25 BPM) Categories: Category I Assessment and Plan Assessment and plan (1) Encounter for induction of labor: Status: Acute Assessment and plan: A: active labor with progress to 9/100 vtx @ 0 category 1 tracing with repositioning epidural in effect P: continue with pitocin augmentation observe for passive descent Objective Vital Signs Reviewed: Yes Objective Narrative Objective Narrative: A series of late decels was noted by RN while pt was on left side Pt turned to right side with resolution of decels, pitocin @ 9 mu/min turned off, IVF 200 ml bolus'ed Matthew placed with return of 400 ml yellow urine 25 minutes of category 1 tracing have followed, pitocin restarted at 4 mu/min SVE for good progress 9/100% vtx descended to 0 station Subjective Interval history since last seen: Resting and dozing, does feel contractions but not painful, can feel downward pressure.
--- NOTE | 2021-06-23 23:54 | PGE_ITS ---
Date of service: 06/23/21 Time of Service: 23:54 Informed Consent Informed Consent: Regional Anesthesia and Risk,Benefits,Alternatives Discussed Pelvic Exam Dilation: 10 Effacement (%): 100 station: +1 Vaginal Exam Presentation: Cephalic Contractions Monitor Mode: External Contraction Frequency(min): q5 Contraction Duration(sec): 60-90 Fetus A Monitor: Internal (FSE) Heart Rate Baseline: 155 Variability: Moderate (6-25 BPM) Categories: Category II CategoryII Plan of Care: Team Huddle, Medical Consult and Continuous Monitoring/Observation FHR Rhythm: Regular Accelerations: 10 X 10 Decelerations: Early, Late and Variable Recurrence: Intermittent Amniotic Membrane Status: Ruptured Assessment and Plan Assessment and plan (1) Encounter for induction of labor: Status: Acute Assessment and plan: Reviewed tracing with nurse midwife/clinical instructor. patient evaluated and noted to now be fully dilated. Since patient is not having persistent late decels and there is moderate variability and even accels the plan will be to try pushing and see how the baby tolerates it. Repeat T&S drawn. Prepared to call OR team if necessary. MD in house until delivery. Objective Temp Pulse Resp BP Pulse Ox 98.1 F 100 H 18 142/73 H 100 06/23/21 22:57 06/23/21 23:51 06/23/21 22:57 06/23/21 23:36 06/23/21 23:51 Laboratory Results WBC 8.31 10^3/uL (4.4-10.8) 06/19/21 09:55 RBC 4.04 10^6/uL (3.93-5.22) 06/19/21 09:55 Hgb 12.1 g/dL (11.2-15.7) 06/19/21 09:55 Hct 35.7 % (36.0-46.0) L 06/19/21 09:55 MCV 88.4 fL (80-95) 06/19/21 09:55 MCH 30.0 pg (27.0-33.0) 06/19/21 09:55 MCHC 33.9 % (32.0-36.0) 06/19/21 09:55 RDW 14.2 % (11.7-14.6) 06/19/21 09:55 Plt Count 224 10^3/uL (130-400) 06/19/21 09:55 MPV 9.7 fL (8.0-11.0) 06/19/21 09:55 Sodium 137 mmol/L (136-145) 06/19/21 09:55 Potassium 3.3 mmol/L (3.5-5.1) L 06/19/21 09:55 Chloride 105 mmol/L (98-107) 06/19/21 09:55 Carbon Dioxide 23.9 mmol/L (21.0-32.0) 06/19/21 09:55 Anion Gap 8.1 mmol/L (3-11) 06/19/21 09:55 BUN 7 mg/dL (7-18) 06/19/21 09:55 Creatinine 0.5 mg/dL (0.55-1.02) L 06/19/21 09:55 Estimated GFR/1.73 m2 >= 60.00 (mL/min/1.73m2) 06/19/21 09:55 Glucose 87 mg/dL (74-106) 06/19/21 09:55 Uric Acid 3.7 mg/dL (2.6-6.0) 06/19/21 09:55 Calcium 9.2 mg/dL (8.5-10.1) 06/19/21 09:55 Total Bilirubin 0.3 mg/dL (0.2-1.0) 06/19/21 09:55 AST 15 U/L (15-37) 06/19/21 09:55 ALT 20 U/L (14-59) 06/19/21 09:55 Alkaline Phosphatase 139 U/L (46-116) H 06/19/21 09:55 Total Protein 7.0 g/dL (6.4-8.2) 06/19/21 09:55 Albumin 2.9 g/dL (3.4-5.0) L 06/19/21 09:55 Ur Random Creatinine 128.41 mg/dL 06/19/21 09:20 U Random Total Protein 33.0 mg/dL 06/19/21 09:20 U [place] Prot/Creat Ratio 0.25 06/19/21 09:20 COVID-19 Source Nasal/Nares 06/19/21 09:35 SARS-CoV-2 (PCR) Negative (Negative) 06/19/21 09:35 Patient ABO/Rh A Positive 06/19/21 09:55 Antibody Screen NEGATIVE 06/19/21 09:55 Subjective Interval history since last seen: Pt is relatively comfortable with her epidural but has minimal right side pain with contractions. Feeling pressure with contractions Results Hemoglobin/Hematocrit: Hgb 12.1 g/dL (11.2-15.7) 06/19/21 09:55 Hct 35.7 % (36.0-46.0) L 06/19/21 09:55 Abnormal Lab Findings: Abnormal Labs 06/19/21 06/19/21 09:55 09:55 Hct 35.7 L Potassium 3.3 L Creatinine 0.5 L Alkaline Phosphatase 139 H Albumin 2.9 L
[2021-06-24] VITALS (22 sets, daily range): BP systolic 107–158; BP diastolic 50–105; PULSE 72–127; RESP 14–20; TEMP 36.7–37.2; O2SAT 97
[2021-06-24] MEDS: Lactated Ringers 1,000 ML 200 ML IV (01:51)
--- NOTE | 2021-06-24 03:25 | W.OBDELIVERY ---
Date of service: 06/24/21 Time of Service: 03:25 OB Labor/ Delivery Information Baby A Delivery Delivery Method: Spontaneaous Presentation: Cephalic Cephalic Position: Vertex Vertex Position: Left Occipital Anterior (shoulders transverse) Breech Position: N/A Cord Description-Baby A: 3 Vessels Cord Description Comment: highly calcified placenta, paracentral cord insertion Amniotic Fluid: Clear Estimated Blood Loss: 300 Delivery Outcome: Liveborn Infant Transferred: Remains with Mother Note: At full dilation, 2nd stage huddle completed and coached pushing begun. FSE in place though IUPC had come out and toco in use for contraction monitoring. Category 2 tracing continued throughout 2nd stage though moderate variability and accelerations were present, and rapid recovery to baseline between contractions was the general rule. Pt pushed in several different positions, H&K on the bed was particularly effective for her. Huddles were held hourly x3 with delivery less then 3 hours from initiation of pushing and tolerance remained stable. of a vigorous male over intact perineum with pt in left sidelying position, transverse shoulders came easily, bulb sx on field due to fair amt mucous and blood in infant's mouth, then infant handed to mother's arms. Pitocin infusion for started, cord ceased pulsating and was clamped then cut by pt's mother, Shaikh placenta intact with 3VC. First degree vaginal floor laceration repaired with 3.0 Vicryl, minimal rubra, excellent family bonding observed. Apgars 8/9, weight 3785 gms. Providers Nurse [employer] Delivery Driver: Lyssa Solis Nurse: Vy Crawford Nurse: Nara Patel Labor/Delivery Information Number of Babies in Womb: 1 Steroids Given: None Group Beta Strep: Positive Antibiotics Administered: Yes Number of Doses of Antibiotics: 4 Rubella Status: Immune Blood Type: A+ Varicella Immunity: Nonimmune Maternal Complications: Other (prolonged induction course over 4 days with active labor achieved on the 5th day) Shoulder Dystocia: No Stages of Labor Onset of Labor Date: 06/24/21 Onset of Labor Time: 02:42 Complete Dilatation Date: 06/24/21 Complete Dilatation Time: 23:39 Labor - Stage 1 Duration: 0 minutes ROM Baby A: 06/23/21 ROM Baby A: 09:12 ROM Total Time- Baby A: [id number] Infant Delivery Date-Baby A: 06/24/21 Infant Delivery Time-Baby A: 02:42 Labor Stage 2 Duration: -1257 minutes Placenta Delivery Date-Baby A: 06/24/21 Placenta Delivery Time-Baby A: 02:51 Labor-Stage 3 Duration: 9 minutes Total Length of Labor-Baby A: 0 minutes Placenta Cultured: No Placenta Status: Delivered Baby A Gender: Male Gestational Status: Term (39-41.6 wks) Gestational Age in Weeks/Days: 39 Weeks and 5 Days weight: 8 lb 5.512 oz Weight Comment: 3785 gms Score-1 Minute Interval(Baby A) Heart Rate-1 minute: 100 BPM or Greater Respiratory Effort- 1 minute: Spontaneous/Strong Cry Muscle Tone-1 minute: Active Movement Reflex Response-1 minute: Prompt Response Color-1 minute: Pallor or Cyanosis Total Score-1 minute: 8 Score-5 Minute Interval(Baby A) Heart Rate- 5 minute: 100 BPM or Greater Respiratory Effort-5 minute: Spontaneous/Strong Cry Muscle Tone-5 minute: Active Movement Reflex Response-5 minute: Prompt Response Color-5 minute: Bluish Hands or Feet Total Score- 5 minute: 9
[2021-06-24] MEDS: Ibuprofen 600 MG TAB PO ×3 (04:05→16:30)
[2021-06-24] MEDS: Acetaminophen 325 MG TAB 650 MG PO ×3 (04:05→16:29)
--- NOTE | 2021-06-24 09:33 | ANES.NEURP_ITS ---
Epidural/Spinal Daily Note Date Performed: 06/24/21 Assessment Time: 09:33 Patient Location: Obstetrics Catheter Type in Place: Epidural Catheter Dressing Assessment: Other (Removed overnight, gauze dressing in place ) Catheter Assessment: Other (Removed overnight ) Previous Catheter Depth Noted (cm): 14 Current Catheter Depth (cm): 0 Current Medication Infusion: Other (None) Current Maintenance Infusion Rate (ml/hour): 0 Current PCEA Bolus Dose (ml): 0 Current Pain Score (0-10): 0 Medication Infusion Stopped, Catheter Removal Planned: Yes Sensory / Motor Block Comments: full sensation and motor function New Bolus Given or Change in Infusion Made: No Completed By: Fletcher Escobar Supervised By: Dorota Arriaga Epidural/Spinal Cath. Removal Date Performed: 06/24/21 Procedure Time: 05:00 Catheter Removal Type: Epidural Catheter Procedure Location: Obstetrics Patient Position: Other (Unknown) Catheter Removal Procedure: Catheter Tip Intact (Per OB note) and Dressing Ap plied Paresthesia: None Procedure Tolerated: No Complications Procedure Outcome: Successful Performed By: Fletcher Escobar Other (not listed above): Performed by L/D Supervised By: Dorota Arriaga
--- NOTE | 2021-06-24 10:18 | W.ANESPOSTOP ---
Postoperative Evaluation Date, Time and Location Date Performed: 06/24/21 Time Performed: 09:30 Patient Location: Obstetrics Vital Signs Most Recent Imported Vital Signs: Most Recent Vital Signs Temp Pulse Resp BP Pulse Ox 37.0 C 81 14 120/70 97 06/24/21 07:30 06/24/21 07:30 06/24/21 07:30 06/24/21 07:30 06/24/21 07:30 Pain Score Most Recent Pain Score: Most Recent Pain Score Pain Level [Back] 0 06/24/21 07:30 Pain Level 1 06/24/21 10:17 Assessment Mental Status: Awake (Alert & Oriented to Patient Baseline) Airway and Respiratory Function: Patent airway with normal (patient baseline) respiratory exam Cardiovascular Function: Hemodynamically Stable Hydration Status: Adequately Hydrated Nausea & Vomiting: No Nausea or Vomiting Pain: Pt. Denies Any Pain Peripheral Nerve Block: Patient did not receive a nerve block
--- NOTE | 2021-06-24 10:58 | W.PM.OBPNV1 ---
Date of service: 06/25/21 Time of Service: 06:07 Assessment and Plan Assessment and plan (1) Term delivered: Status: Acute Assessment and plan: A: PPD#1, nml recovery off to a good start BP's remain stable/normotensive CBC from this morning pending Pt has good support from family and friends P: Pt desires discharge today if baby is released [place] circumcision is planned for this morning Varciella vaccine prior to discharge Written instructions reviewed and given to pt F/up with CNM in 2 & 6 wks Not planning to begin BCM and prefers NFP, not sexually active currently (2) Chronic hypertension in : Status: Acute Subjective Subjective Patient comments: No complaints, Pain well controlled, Tolerating diet and Flatus present baby status: Doing well, Nursing well, Rooming in and Strong Bonding Observed [place] feeding status: Exclusively breast feeding Exam Physical Exam Vital signs: Temp Pulse Resp BP Pulse Ox 98.6 F 81 14 120/70 97 06/24/21 07:30 06/24/21 07:30 06/24/21 07:30 06/24/21 07:30 06/24/21 07:30 Vital Signs Reviewed: Yes Constitutional Constitutional: no acute distress HEENT Exam HEENT Exam: Normal Neck Exam Neck Exam: Normal Breast Exam Bilateral: Breast Exam: Normal and Soft Nipple Exam: Normal and Uninjured Respiratory Exam Respiratory Exam: Normal Cardiovascular Exam Cardiovascular Exam: Normal Abdominal Exam Abdomen: Other (soft, nontender) Fundal Exam Fundus: Below Umbilicus and Firm Rectal Exam Rectal Exam: Not Done Exam Perineum: Normal and Repair Intact Extremities Exam Extremity Exam: Normal Back/Spine/Pelvis Exam Back Exam: Normal Skin Exam Skin Exam: Normal Neurological Exam Neurological Exam: Normal Psychiatric Exam Psychiatric Exam: Normal Results Hemoglobin/Hematocrit: Hgb 12.1 g/dL (11.2-15.7) 06/19/21 09:55 Hct 35.7 % (36.0-46.0) L 06/19/21 09:55
[2021-06-24] MEDS: Docusate Sodium 100 MG CAP PO (16:29)
[2021-06-24] MEDS: Hamamelis Leaf/Glycerin 100 EACH BOX PR (16:31)
[2021-06-25 00:36] VITALS: BP 117/68; PULSE 78; RESP 16; TEMP 36.4; O2SAT 97
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
[2021-06-25 07:30] VITALS: BP 123/73; PULSE 85; RESP 16; TEMP 36.7; O2SAT 98
[2021-06-25] MEDS: Ibuprofen 600 MG TAB PO ×2 (07:49→13:55)
[2021-06-25] MEDS: Acetaminophen 325 MG TAB 650 MG PO ×2 (07:49→13:54)
[2021-06-25] MEDS: Docusate Sodium 100 MG CAP PO (07:49)
[2021-06-25 08:55] LABS: HCT 30.7 % (36.0-46.0); HGB 10.3 g/dL (11.2-15.7); MCH 29.8 pg (27.0-33.0); MCHC 33.6 % (32.0-36.0); MCV 88.7 fL (80-95); MPV 10.2 fL (8.0-11.0); Platelet Count 221 10^3/uL (130-400); RBC 3.46 10^6/uL (3.93-5.22); RDW 14.5 % (11.7-14.6); RDW-SD 46.3 fL; WBC 11.58 10^3/uL (4.4-10.8)
[2021-06-25] MEDS: Varicella Virus Vaccine (Live) 0.5 ML SC (11:13)
== END 2021-06-25 14:45 | disposition home or self-care (01) | DRG 807 ==
PROVIDERS: Admitting Provider Advanced Practice Midwife; PCP Nurse Practitioner; Visit Provider Advanced Practice Midwife
DX: O10.02 Pre-existing essential hypertension complicating childbirth (principal); Z37.0 Single live birth; Z3A.39 39 weeks gestation of pregnancy; O99.824 Streptococcus B carrier state complicating childbirth; Z20.822 Contact with and (suspected) exposure to COVID-19
CPT/HCPCS: 36415; 80053; 85027; 86850; 86900; 86901; 87635; 59200; 82565; 84156; 84550; J2540; J3490